=== PATIENT | female | born 2000 | race Caucasian/White ===

== ENCOUNTER 2018-11-09 07:58 | Emergency (ER) | payer OTHER ==
[2018-11-09] MEDS: IBUPROFEN 600 MG TAB PO (08:58)
[2018-11-09] MEDS: LORAZEPAM 1 MG TAB PO (08:58)
[2018-11-09 09:15] LABS: ADD UMIC NO; UR ASCORBIC ACID NEGATIVE (NEGATIVE); UR BACTERIA FEW /HPF (NONE SEEN); UR BILIRUBIN (Dip) NEGATIVE (NEGATIVE); UR BLOOD (Dip) NEGATIVE (NEGATIVE); UR CLARITY SLIGHTLY CLOUDY (CLEAR); UR COLOR STRAW (YELLOW); UR GLUCOSE (Dip) NEGATIVE (NEGATIVE); UR KETONES (Dip) NEGATIVE (NEGATIVE); UR LEUKOCYTE ESTERASE (Dip) NEGATIVE Leu/ul (NEGATIVE); UR NITRITE (Dip) NEGATIVE (NEGATIVE); UR RBC 2 /HPF (0-5); UR SPECIFIC GRAVITY (Dip) 1.008 (1.003-1.030); UR SQUAMOUS EPITHELIAL CELL FEW /HPF (FEW); UR TOTAL PROTEIN (Dip) NEGATIVE (NEGATIVE); UR UROBILINOGEN (Dip) NEGATIVE (NEGATIVE); UR WBC 0 /HPF (0-5)
== END 2018-11-09 10:09 | disposition home or self-care (01) ==
LOC: FTE 10:09
DX: M54.5 Low back pain (principal)
CPT/HCPCS: 81001; 81003; 81025; 99283